=== PATIENT | female | born 1995 | race Two or more races ===

== ENCOUNTER 2025-06-28 09:17 | Outpatient (AMB) | payer OTHER, MEDICAID, SELFPAY ==
--- NOTE | 2025-06-28 09:19 | OBCLNT_ITS ---
Vital Signs 06/28/25 09:23 Height 1.57 m Height Method Stated Weight 63.276 kg Weight Measurement Method Standing Scale BMI 25.4 BP 128/91 H Blood Pressure Source Automatic Cuff Blood Pressure Location Right Upper Arm Position Sitting Respiration 18 Pulse 85 Pulse Source Monitor Temp 98.2 F Temp Source Temporal Artery Scan Pulse Oximetry (%) 98 Oxygen Delivery Method Room Air Allergies/Home Meds Allergies & Medications Allergies bee venom protein (honey bee) Allergy (Verified 06/28/25 11:50) Medication Reconciliation No Known Home Medications 06/28/25 [History Confirmed 06/28/25] Intake Visit Data Collection New Patient or Established: New Patient not seen in past 3 years at [facility] (considered New) Reason for Visit:: OBI Seen by Clinical Staff ONLY (RN/MA): No Network Security Architect Required: No Do You Feel Safe at Home: Yes Authorities Contacted: N/A PCP or OBGYN visit in last 3 months: No Hx Now: Yes Are you currently on any form of Control: No Last menstrual period: 05/11/25 Pain Present Currently: Yes Pain Location: Back Pain Scale Used: Patino-Stokes/Numerical Pain scale:: 2 Smoking Status Smoking Status: Never smoker Immunizations Flu Vaccine in the Last 12 Months: Yes Date of most recent flu vaccination: 04/10/25 Flu Vaccine Exclusion Criteria: Refused by Patient Questionnaires Covid-19 Vaccine Questionnaire Has patient been vacinated for Covid-19 Have you been vacinated for Covid-19: Yes PHQ-9 PHQ-2 Over the last 2 weeks, how often have you been bothered by any of the following problems? 1. Little interest or pleasure in doing things: not at all 2. Feeling down, depressed, or hopeless: not at all Total score: 0 PHQ-9 3. Trouble falling or staying asleep, or sleeping too much: Not at all 4. Feeling tired or having little energy: Several days 5. Poor appetite or overeating: Not at all 6. Feeling bad about yourself - or that you are a failure or have let yourself or your family down: Not at all 7. Trouble concentrating on things, such as reading the newspaper or watching television: Not at all 8. Moving or speaking so slowly that other people could have noticed? - Or the opposite - being so fidgety or restless that you have been moving around a lot more than usual: not at all 9. Thoughts that you would be better off or of hurting yourself in some way: Not at all Total score: 1.0 If you checked off any problems, how difficult have these problems made it for you to do your work, take care of things at home, or get along with other people?: not difficult at all Source: Developed by Drs. González Gordon, Claudia Sims, Armando Borjas and colleagues, with an educational mike from [employer]. Social History Living Situation History Housing: Apartment Tobacco History Smoking Status: Never smoker Second Hand Smoke Exposure: No Alcohol History Alcohol Intake: Never Domestic Abuse History Do You Feel Safe at Home: Yes History of Present Illness HPI Narrative Initial visit, vaginal bleeding since June 13 with intermittent episodes, sharp unilateral pelvic pain that radiates to back Allie Daniel is a 30-year-old female presenting for initial visit with concerns regarding abnormal bleeding and declining beta-hCG levels. The patient reports bleeding that began on June 13, stopped for approximately 3 days, then resumed and is ongoing. She brought her beta-hCG lab results showing an initial rise followed by a decline: 06/16 was 106, 06/19 was 166, 06/26 was 245, and 06/24 was 385, indicating the levels peaked at 385 then dropped to 245. The patient reports experiencing sharp pain on her right side that radiates to her back, described as intermittent and coming and going in nature. This pain began around Tuesday or Tuesday of the current week. 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 The patient has recently lost a significant amount of weight through a ketogenic diet, having stopped eating bread and other carbohydrates. 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 No obvious adnexal masses identified on initial evaluation. BIG DATA DEVELOPER: Past Medical History Past Medical History: Yes Hx Neurological Disorders, Yes Hx Cardiac Disorders (gest. htn), No Hx Cancer, No Hx Blood Disorders, No Hx Anemia, No Hx Gastrointestinal Disorders, No Hx Renal Disease, No Hx Diabetes Mellitus Type 1 and No Hx Diabetes Mellitus Type 2 OB Initial Visit Menstrual History Flow: light Menstrual regularity: regular Monthly: Yes Age at menarche: 12 On control pills at conception: No Date of positive home test: 06/06/25 OB History : 5 Para: 2 Hx # Pregnancies: 0 Hx Total # of Abortions (Spontaneous & Elective): 2 # of Living Children: 2 Delivery History 2nd : Child's name: ANAM DANIEL date: 01/14/22 sex: male Gestational age at delivery (weeks): 38 Delivery type: weight (lbs): 2721.554 g weight (oz): 3175.147 g Delivery complications: MOM HEAVY BLEEDING History of depression before or after : No 1st : Child's name: JUSTINE DANIEL date: 07/04/20 sex: female Gestational age at delivery (weeks): 39 Delivery type: weight (lbs): 3175.147 g Delivery complications: HEART RATE DROPPING, MOM HAD HIGH BLOOD PRESSURE, History of depression before or after : No Exam General General Appearance: alert, in no apparent distress and healthy appearing Head Head exam: atraumatic Neck Neck exam: Present normal inspection and trachea midline Chest Chest inspection: Present normal inspection and symmetric chest wall rise Abdominal Abdominal exam: Present tenderness (minimal in RRQ); Absent distention External exam: Present normal external exam; Absent tenderness Neuro Neurological exam: Present oriented X3 Psych Psychiatric exam: Present normal affect and normal mood Office Procedures [facility] LOC & Office Proc's Nursing/Assessment Patient Status: Initial/New Patient OB Clinic Nursing Assessment: Medication Reconciliation, Update PMH in EMR and Vital Signs OB Clinic Coordination of Care: Complex Care and Chronic Disease 1-5, Education Complex Pt/Fam, Consent,records obtained, informed consent, Lab and Imaging orders, Results/Orders obtained and Staff clarify orders Special Needs: Heart tones New Patient Charge New Patient Point Assignment: [id number] New Patient Point Charge: CORRESPONDENCE SECTION SUPERVISOR Level 4 ([id number]) Assessment & Plan Diagnosis / Problem List (1) Threatened : Status: Acute (2) of unknown anatomic location: Status: Acute Plan Chemical with possible miscarriage Assessment: Patient presents with declining beta-hCG levels indicating probable loss. Serial beta-hCG values show initial rise from 106 on 06/16 to peak of 385 on 06/24, followed by decline to 245 on 06/26. Normal should demonstrate doubling every 72 hours, but patient's levels failed to appropriately increase and subsequently declined. Transvaginal ultrasound reveals empty uterine cavity with no intrauterine visualized. Patient reports vaginal bleeding starting June 13, stopping for 3 days, then resuming and ongoing. Clinical presentation consistent with chemical where fertilization occurs but fails to develop appropriately. Plan: - Obtain repeat beta-hCG level to confirm declining trend - Perform transvaginal ultrasound to evaluate for retained products of conception - Patient advised not to take medications to stop bleeding to allow complete evacuation - If ultrasound demonstrates retained tissue, may require dilation and curettage or medical management - Return to clinic Tuesday or Tuesday for results review and further management planning - If pain worsens, present to emergency room and request physician be contacted Rule out ectopic Assessment: Patient reports intermittent sharp unilateral pelvic pain that radiates to back, raising concern for possible ectopic . Pain described as constant but intermittent in nature. Transvaginal ultrasound shows empty uterus with no adnexal masses visualized on ovaries, but given clinical presentation with pain and declining beta-hCG levels, ectopic must be definitively excluded. Plan: - Stat order for comprehensive evaluation to rule out ectopic - Transvaginal ultrasound to evaluate adnexa and pelvis - Serial beta-hCG monitoring - If pain becomes worse, present to emergency room immediately and request phys ician be contacted
[2025-06-28 09:23] VITALS: BP 128/91; PULSE 85; RESP 18; TEMP 36.8; O2SAT 98; BMI 25.4
== END 2025-06-28 10:03 | disposition home or self-care (01) ==
LOC: HODSOBC 09:17
PROVIDERS: Supervising Provider Obstetrics & Gynecology; Visit Provider Obstetrics & Gynecology
DX: O09.899 Supervision of other high risk pregnancies, unspecified trimester (principal); O20.0 Threatened abortion; O36.80X0 Pregnancy with inconclusive fetal viability, not applicable or unspecified; Z3A.00 Weeks of gestation of pregnancy not specified; Z91.030 Bee allergy status
CPT/HCPCS: 99204; G0463

== ENCOUNTER 2025-06-28 11:48 | Observation (INO) | payer OTHER, SELFPAY ==
[2025-06-28] VITALS (18 sets, daily range): BP systolic 118–144; BP diastolic 74–107; PULSE 86–97; RESP 14–22; TEMP 36.4–37.6; O2SAT 98–100; BMI 25.4; BMI 25.8
--- NOTE | 2025-06-28 12:50 | EDNOTE_ITS ---
ED General RME/HPI General Chief complaint: General Adult/Misc Complain Stated complaint: R/O ECTOPIC , SENT BY [facility] Time Seen by Provider: 06/28/25 12:21 Arrival date/time: 06/28/25 11:48 30-year-old female patient 5 para 2 2, about 6 weeks , was sent was from ultrasound department for ruptured ectopic . According to the patient's been having pain to the right lower pelvic area since Tuesday, it was strong during the first day currently 2 out of 10. Patient is ambulatory denies any dizziness denies any vomiting denies any other complaints. No fever noted patient saw Dr. Machado this morning who ordered ultrasound. Related Data Home Medications ?Medication ?Instructions ?Recorded ?Confirmed No Known Home Medications 06/28/2506/10 Allergies Allergy/AdvReac Type Severity Reaction Status Date / Time bee venom protein (honey bee) Allergy Verified 06/28/25 11:50 Review of Systems Review of Systems Narrative Review of Systems: Review of system reviewed and within normal limits except mentioned in HPI ED Exam Narrative Physical exam: VITAL SIGNS: Reviewed. GENERAL APPEARANCE: Alert and interactive, follows commands, no acute distress, HEAD AND FACE: Non-traumatic. ENT: PERRL, pink conjunctivitis, eyelid no trauma, Mucous membrane moist. NECK: Supple, nontender, no nuchal rigidity. CHEST: No tenderness, no crepitus, no paradoxical movement, no retractions. LUNGS: Clear, well ventilated, symmetric, no rales, no wheezing, no ronchi, no stridor, good breath sounds bilaterally. HEART: Regular rate, regular rhythm, no murmur, no gallops. ABDOMEN: Soft, positive bowel sounds, nondistended, no guarding, right lower pelvic tenderness, no rebound, no masses, RECTAL: Deferred. GENITAL: Deferred. NEUROLOGICAL: Gross motor function intact sensory function intact, Appropriate for age. MUSCULOSKELETAL: low back nontender, full range of motion. EXTREMITIES: Nontender, full range of motion. SKIN: Color pink, dry, no rash, no lacerations, no abrasions, no contusions. LYMPHATICS: Deferred. Course Quality Measures none Orders Category Date Time Status Place in Surgical Day Care Routine Admission 06/28/25 13:57 Active Activity as Tolerated Routine Care 06/28/25 13:57 Ordered COVID-19 Screening Questionnaire NOW Care 06/28/25 14:02 Active Decision to Admit X1 Care 06/28/25 14:02 Active NPO NOW Care 06/28/25 13:10 Active Obtain Written Consent For: NOW Care 06/28/25 13:57 Active Consult to Gynecology Stat Cons 06/28/25 13:10 Ordered Diet NPO (NOW) Diet 06/28/25 13:10 Active Beta HCG,Quantitative Stat Lab 06/28/25 12:51 Completed CBC Stat Lab 06/28/25 12:51 Completed Comprehensive Metabolic Panel Stat Lab 06/28/25 12:51 Completed Partial Thromboplastin Time Stat Lab 06/28/25 12:51 Completed Prothrombin Time with INR Stat Lab 06/28/25 12:51 Completed Type and Screen Stat Lab 06/28/25 12:51 Completed Urinalysis Stat Lab 06/28/25 12:44 Ordered ceFAZolin/D5W 1 GM IVPB [Ancef Ivpb] Med 06/28/25 13:57 Active 1 gm in 50 ml IV X1 Vital Signs Vital signs: Vital Signs Temperature 98.9 F 06/28/25 12:42 Pulse Rate 94 06/28/25 12:42 Respiratory Rate 18 06/28/25 12:42 Blood Pressure 144/107 H 06/28/25 12:42 Pulse Oximetry (%) 100 06/28/25 12:42 Oxygen Delivery Method Room Air 06/28/25 12:42 Discharge Plan Plan Patient Disposition: Admit Acute Care w/in Hospital Discharge Disposition comment: Stable Prescriptions/Referrals Prescriptions/Med Rec: No Action No Known Home Medications Referrals: Leroy Escobar PA-C [Primary Care Provider] - In 1 week Problem List Clinical Impression: Ruptured ectopic Patient/Caregiver Discharge Instructions Print Language: Mauritanian Stand Alone Forms: [employer] Award Info., Patient Portal Info Letter MDM Narrative MDM hospital course (for use when minimal MDM required): 30-year-old female patient 5 para 2 2, about 6 weeks , was sent was from ultrasound department for ruptured ectopic . According to the patient's been having pain to the right lower pelvic area since Tuesday, it was strong during the first day currently 2 out of 10. Patient is ambulatory denies any dizziness denies any vomiting denies any other complaints. No fever noted patient saw Dr. Machado this morning who ordered ultrasound. I spoke with Dr. Machado, CUSTOMER COUNTER REPRESENTATIVE open this patient, and told me to contact Dr Gogo mcneill. Dr Brown examined the patient in the emergency room and will schedule for emergency laparoscopic surgery for ruptured ectopic . Patient hemoglobin was noted to be normal, patient vital signs are also within normal limits latest blood pressure 132/84 heart rate of 94 Patient is admitted under Dr Brown Medication Administration(s) Medication Administration History Cefazolin Sodium/Dextrose (Ancef Ivpb) 1 gm in 50 mls @ 50 mls/hr IV X1 ONE Stop: 06/28/25 14:56
[2025-06-28 13:03] LABS: Basophils # (Auto) 0.0 Thou/mm3 (0.0-0.2); Basophils % (Auto) 1 % (0-2.5); Eosinophils # (Auto) 0.0 Thou/mm3 (0.0-0.5); Eosinophils % (Auto) 1 % (0-10); Hematocrit 37.5 % (36.0-46.0); Hemoglobin 12.7 g/dL (12.0-16.0); Immature Granulocytes Auto 0.02 Thou/mm3 (0.00-0.00); Lymphocytes # (Auto) 2.2 Thou/mm3 (1.0-4.8); Lymphocytes % (Auto) 31 % (10-50); Mean Corpuscular HGB Conc 33.9 g/dl (31.0-37.0); Mean Corpuscular Hemoglobin 30.8 pg (25.0-35.0); Mean Corpuscular Volume 91 fL (80-100); Monocytes # (Auto) 0.4 Thou/mm3 (0.0-0.8); Monocytes % (Auto) 6 % (0-12); Neutrophils # (Auto) 4.4 Thou/mm3 (1.8-7.7); Neutrophils % (Auto) 62 % (37-80); Nucleated Red Blood Cell # 0.00 Thou/mm3 (0.00-0.00); Nucleated Red Blood Cell % 0 /100 WBC (0); Platelet Count 317 Thou/mm3 (140-440); RDW Standard Deviation 39.9 fL (36.4-46.3); Red Blood Count 4.13 Miln/mm3 (4.00-5.20); White Blood Count 7.1 Thou/mm3 (3.6-11.0)
[2025-06-28 13:17] LABS: INR 1.0 (0.9-1.3); Partial Thromboplastin Time 28.0 Seconds (22.0-36.0); Prothrombin Time 10.7 Seconds (9.0-12.2)
[2025-06-28 13:29] LABS: Alanine Aminotransferase < 7 U/L (10-49); Albumin, Serum 5.1 gm/dL (3.5-5.0); Albumin/Globulin Ratio 1.9 (1.2-2.2); Alkaline Phosphatase 67 U/L (46-116); Anion Gap 10 (7-16); Aspartate Amino Transferase 19 U/L (0-34); BUN/Creatinine Ratio 17 Ratio (12-20); Beta HCG,Quantitative 404 mIU/mL (<5.0); Bilirubin,Total 0.8 mg/dL (0.3-1.2); Blood Urea Nitrogen 10 mg/dL (9-23); Calcium 9.3 mg/dL (8.3-10.6); Calcium (Corrected) 9.3 mg/dL (8.5-10.1); Carbon Dioxide 26.8 mMol/L (20.0-31.0); Chloride 106 mMol/L (98-107); Creatinine (Component) 0.6 mg/dL (0.6-1.3); Estimated Creatinine Clearance 119.6 mL/min (>60); Globulin 2.7 gm/dL (2.3-3.5); Glucose 107 mg/dL (74-106); Osmolality,Calculated 283 (275-295); Potassium 3.8 mMol/L (3.4-5.1); Sodium 143 mMol/L (136-145); Total Protein 7.8 gm/dL (5.7-8.2); eGFR > 60 See Note
--- NOTE | 2025-06-28 13:45 | ESCONSULT_ITS ---
CHARGE PREPARATION TECHNICIAN HPI Data of Consult Patient: new to practice Consult date: 06/28/25 Requesting Physician: Dr. Dawkins emergency room Primary Care Provider: Leroy Escobar PA-C Consult Narrative Reason for consult: ectopic History of present illness: Patient is a 30-year-old -0-2-2 approximately 6 weeks with vaginal bleeding beginning June 13 and severe pelvic pain beginning June 24, 2025. She saw Dr[address] Machado in the clinic today and he ordered an ultrasound. The ultrasound is positive for free fluid in her pelvis with a suspected ruptured right ectopic . The ectopic is seen in the right fallopian tube measuring approximately 6 weeks with no cardiac activity. Patient is consented for a laparoscopic unilateral salpingectomy possible laparotomy. Of note her hemoglobin is stable at 12.7. Her quantitative hCG is 404. Her blood type is B+. cc:: cc: Review of Systems Review of Systems Systems Reviewed: All systems reviewed, normal except as documented Narrative Review of Systems: Patient denies fevers chills nausea vomiting. She reports sharp abdominal pain worse 4 days ago then today. She has been having irregular bleeding since June 13. Past Medical History Past Medical History Comments PMH COMMENT: Patient denies any chronic medical problems. She denies diabetes or hypertension. She reports mild asthma and has an albuterol inhaler at home. She has a surgical history significant for x 2 The first was in 2019 for preeclampsia The second was in 2021 and was an elective repeat. She has had 2 other losses without surgery. Meds Home Medications and Allergies Home Medications ?Medication ?Instructions ?Recorded ?Confirmed ?Type No Known Home Medications 06/28/2506/10 History Allergies Allergy/AdvReac Type Severity Reaction Status Date / Time bee venom protein (honey bee) Allergy Verified 06/28/25 11:50 Exam - CHARGE PREPARATION TECHNICIAN Vital Signs Temp Pulse Resp BP Pulse Ox O2 Del Method 98.9 F 94 18 144/107 H 100 Room Air 06/28/25 12:42 06/28/25 12:42 06/28/25 12:42 06/28/25 12:42 06/28/25 12:42 06/28/25 12:42 Narrative Exam Patient is alert and oriented x 3 in mild distress. The father of the baby is at bedside. She is cooperative. Routine Respiratory Exam Respiratory: Present lungs clear Routine Cardiovascular Exam Cardiovascular: Present RRR Routine Abdominal Exam Abdominal: Present soft Detailed Abdominal Exam Comments: Abdomen soft slightly tender no rebound no guarding Pfannenstiel scar x 2 present on patient's abdomen. Routine Extremities Exam Comments: No significant edema or erythema of bilateral lower extremities CHARGE PREPARATION TECHNICIAN - Results Labs 06/28/25 12:51 06/28/25 12:51 Labs: Short CBC 06/28/25 Range/Units 12:51 WBC 7.1 (3.6-11.0) Thou/mm3 Hgb 12.7 (12.0-16.0) g/dL Hct 37.5 (36.0-46.0) % Plt Count 317 (140-440) Thou/mm3 BMP 06/28/25 12:51 Sodium 143 Potassium 3.8 Chloride 106 Carbon Dioxide 26.8 BUN 10 Creatinine 0.6 Glucose 107 H Calcium 9.3 Liver Function 06/28/25 Range/Units 12:51 Total Bilirubin 0.8 (0.3-1.2) mg/dL AST 19 (0-34) U/L ALT < 7 L (10-49) U/L Alkaline Phosphatase 67 (46-116) U/L Albumin 5.1 H (3.5-5.0) gm/dL Imaging and Cardiology US - abdomen: Status: image reviewed by me (Ultrasound was reviewed with a small to moderate amount of free fluid. Ectopic seen in right adnexa. Uterus 8 cm with a stripe of 0.8 cm and no intrauterine seen.) Assessment and Plan Assessment and plan (1) Ectopic without intrauterine : Status: Acute Assessment and plan: For laparoscopic unilateral salpingectomy possible laparotomy. The patient was consented for the procedure in front of her emergency room RN and her significant other. The risks of the surgery were discussed with the patient including the risk of bleeding, infection, blood transfusion, damage to bowel, bladder, blood vessels, or other organs. Laparotomy and prolonged hospital stay should any the above occur. All questions were answered and all consents were signed. Will proceed with laparoscopy unilateral salpingectomy in approximately 1 to 2 hours depending on OR availability. Additional Assessment & Plan Additional Plan: Keep patient NPO. She already has [address]. Current hemoglobin 12.7. Vital signs stable. (1) Ectopic without intrauterine Qualifiers: Location of ectopic : tubal Laterality: right Qualified Code(s): O 00.101 - Right tubal without intrauterine
[2025-06-28] MEDS: ceFAZolin/D5W 1 GM IVPB 1 GM/50 ML BAG IV (14:15)
[2025-06-28 17:17] LABS: Collection Type, Urine Clean Catch
[2025-06-28 17:22] LABS: Bilirubin,Urine Negative (Negative); Blood,Urine 3+ (Negative); Color,Urine Colorless (Lt Yel-Yel); Glucose, Urine Negative (Negative); Ketones,Urine Negative (Negative); Leukocyte Esterase,Urine Negative (Negative); Nitrite,Urine Negative (Negative); PH,Urine 6.0 (5.0-7.0); Protein,Urine Negative (Neg - Trace); RBC,Urine 3 /hpf (0-3); Specific Gravity,Urine 1.007 (1.001-1.035); Squamous Epithelial Cell,Urine 7 /hpf (0-5); Urobilinogen,Urine Negative mg/dL (0.0-1.0); WBC,Urine 2 /hpf (0-5)
[2025-06-28 17:45] LABS: Clarity,Urine Hazy (Clear/Hazy)
[2025-06-28] MEDS: HYDROmorphone INJ 2 MG/ML VIAL 0.4 MG IVP (17:54)
[2025-06-28] MEDS: ONDANSETRON INJ 2 MG/ML INJ 2 ML 4 MG IVP (17:58)
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
[2025-06-28] MEDS: MORPHINE SULF INJ 4 MG/ML VIAL 3 MG IV (18:09)
[2025-06-28] MEDS: KETOROLAC INJ 30 MG/ML VIAL IVP (18:13)
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
--- NOTE | 2025-06-28 19:44 | ESOP_ITS ---
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 Her quantitative hCG was 404. Patient's ultrasound revealed free fluid in the pelvis and a right ectopic . She was consented for laparoscopy unilateral salpingectomy possible laparotomy. Patient's past obstetrical history significant for C- section x 2. Pre-Op diagnosis: 1. Abdominal pain 2. Positive test 3. Suspected ectopic Post-Op diagnosis: Right ectopic with a small amount of hemoperitoneum Anesthesia type: General Procedure description: After obtaining informed consent, the patient was brought back to the operating room and general anesthesia administered. She was then prepped and draped in the dorsolithotomy position using Maikel stirrups in a normal sterile fashion. Her bladder was emptied with an in and out catheter. The patient was given 2 g of Ancef by anesthesia. A speculum was inserted and the cervix identified and a uterine manipulator inserted. The surgeons gloves were changed and attention was turned to the patient's abdomen where a 5 mm incision was made in her periumbilical fold. A Veress needle was introduced and correct intra-abdominal placement confirmed via the water drop test. The abdomen was allowed to insufflate with 3 L of CO2 gas. A 5 mm trocar and sleeve were introduced through the umbilical incision along with a 5 mm camera and correct intra- abdominal placement visually confirmed. A 5 mm incision was made in her right lower quadrant and a 5 mm trocar and sleeve introduced under direct visualization. A 10 mm incision was made in her left lower quadrant and a 10 mm trocar and sleeve introduced under direct visualization. The pelvis was copiously irrigated with the Pop a irrigation device and pictures taken of the above findings. The right fallopian tube was found to be distended with an ectopic and a small amount of hemoperitoneum seen especially in the cul-de-sac, approximately 50 cc.. The fimbriated end of the right fallopian tube was grasped with an atraumatic grasper and the entire fallopian tube was removed from its fimbriated end all the way to the cornual end. The tube was placed in Endo Catch bag through the large instrument port and removed from the patient's abdomen. The pelvic sidewall was carefully surveyed to ensure no damage had occurred to the ureter or vessels on the right pelvic sidewall and the ureter was found to be coursing normally free of the operating field. The pelvis was then copiously irrigated with more irrigation fluid and the salpingectomy site noted to be hemostatic. A blunt probe was placed through one of the instrument ports and pictures taken of the above findings. The left fallopian tube and ovary were found to be completely normal. The right ovary was normal. The patient did have adhesions involving her anterior abdominal lower uterine segment to her anterior abdominal wall. The posterior cul-de-sac was free. Her appendix appeared normal. After ensuring there the salpingectomy site was still hemostatic, the procedure was terminated. All instrumentation was removed from the patient's abdomen and the CO2 gas allowed to resolve. All incisions were closed using subcuticular sutures of 4-0 Monocryl. All instrumentation was removed from the patient's vagina and the tenaculum site noted to be hemostatic. The patient tolerated the procedure well, sponge, lap, needle and instrument counts were correct x 2. The patient went to the recovery awake and in stable condition .Pathology was right fallopian tube containing suspected ectopic . Fluids: crystalloid Fluid amount (mL): 1,000 Urine output (mL): 50 Specimen: right tube Implants: None Estimated blood loss (ml): 10 Findings: Adhesions of anterior uterus to anterior abdominal wall. Omental adhesions around umbilicus. Ectopic in the median portion of her right fallopian tube extruding blood. Approximately 50 cc of blood and clots in the posterior cul-de-sac. Normal ovaries bilaterally. Normal left fallopian tube. Complications: none Surgical staff Operation Date: 06/28/25 15:30 Case Staff Anesthesiologist: Crescencio Stewart RN First Assistant: Lazara Salgado Diagnosis Discharge Diagnosis (1) Ruptured ectopic : Status: Acute Problem details: Patient's status post laparoscopic right salpingectomy. She will stay overnight as the case was completed at approximately 5:30 PM. Problem List Completed Was Problem List Reviewed/Reconciled?: Yes
[2025-06-28 19:48] LABS: Fibrinogen 288 mg/dL (175-375)
[2025-06-28] MEDS: HYDROcodone/APAP 5/325 TABLET 1 TAB PO (21:24)
[2025-06-29] VITALS: BP 121/74; PULSE 84; RESP 18; TEMP 36.8; O2SAT 98
[2025-06-29] MEDS: KETOROLAC INJ 30 MG/ML VIAL IVP ×2 (00:17→05:54)
[2025-06-29 00:47] LABS: Fibrinogen 309 mg/dL (175-375)
[2025-06-29 04:00] VITALS: BP 116/79; PULSE 71; RESP 18; TEMP 36.3; O2SAT 100
[2025-06-29 06:11] LABS: Basophils # (Auto) 0.0 Thou/mm3 (0.0-0.2); Basophils % (Auto) 0 % (0-2.5); Eosinophils # (Auto) 0.0 Thou/mm3 (0.0-0.5); Eosinophils % (Auto) 0 % (0-10); Hematocrit 35.7 % (36.0-46.0); Hemoglobin 12.4 g/dL (12.0-16.0); Immature Granulocytes Auto 0.05 Thou/mm3 (0.00-0.00); Lymphocytes # (Auto) 1.2 Thou/mm3 (1.0-4.8); Lymphocytes % (Auto) 10 % (10-50); Mean Corpuscular HGB Conc 34.7 g/dl (31.0-37.0); Mean Corpuscular Hemoglobin 31.1 pg (25.0-35.0); Mean Corpuscular Volume 90 fL (80-100); Monocytes # (Auto) 0.5 Thou/mm3 (0.0-0.8); Monocytes % (Auto) 4 % (0-12); Neutrophils # (Auto) 9.9 Thou/mm3 (1.8-7.7); Neutrophils % (Auto) 86 % (37-80); Nucleated Red Blood Cell # 0.00 Thou/mm3 (0.00-0.00); Nucleated Red Blood Cell % 0 /100 WBC (0); Platelet Count 303 Thou/mm3 (140-440); RDW Standard Deviation 38.3 fL (36.4-46.3); Red Blood Count 3.99 Miln/mm3 (4.00-5.20); White Blood Count 11.5 Thou/mm3 (3.6-11.0)
[2025-06-29 06:53] LABS: Alanine Aminotransferase < 7 U/L (10-49); Albumin, Serum 4.4 gm/dL (3.5-5.0); Albumin/Globulin Ratio 1.7 (1.2-2.2); Alkaline Phosphatase 64 U/L (46-116); Anion Gap 11 (7-16); Aspartate Amino Transferase 18 U/L (0-34); BUN/Creatinine Ratio 12 Ratio (12-20); Bilirubin,Total 0.9 mg/dL (0.3-1.2); Blood Urea Nitrogen 7 mg/dL (9-23); Calcium 9.1 mg/dL (8.3-10.6); Calcium (Corrected) 9.1 mg/dL (8.5-10.1); Carbon Dioxide 23.8 mMol/L (20.0-31.0); Chloride 106 mMol/L (98-107); Creatinine (Component) 0.6 mg/dL (0.6-1.3); Estimated Creatinine Clearance 120.5 mL/min (>60); Globulin 2.6 gm/dL (2.3-3.5); Glucose 105 mg/dL (74-106); Osmolality,Calculated 279 (275-295); Potassium 4.3 mMol/L (3.4-5.1); Sodium 141 mMol/L (136-145); Total Protein 7.0 gm/dL (5.7-8.2); eGFR > 60 See Note
[2025-06-29 08:00] VITALS: BP 126/85; PULSE 81; RESP 16; TEMP 36.1; O2SAT 100
[2025-06-29] MEDS: HYDROcodone/APAP 5/325 TABLET 1 TAB PO (08:36)
--- NOTE | 2025-06-29 10:11 | PD.GYNPROG ---
Documentation for date of: 06/29/25 PROGRAM SERVICES ASSISTANT Subjective Subjective Interval history: Patient doing well this morning. Pain is adequately controlled. No chest pain or shortness of breath. Labs are appropriate. Exam Vital Signs Temp Pulse Resp BP Pulse Ox O2 Del Method O2 Flow Rate 97.0 F 81 16 126/85 H 100 Room Air 8 06/29/25 08:00 06/29/25 08:00 06/29/25 08:00 06/29/25 08:00 06/29/25 08:00 06/29/25 08:00 06/28/25 19:40 Constitutional Constitutional: no acute distress Routine HEENT Exam Head: Present normocephalic and atraumatic Eye: Present EOMI and PERRL ENT: Present mucous membranes moist Routine Neck Exam Neck: Present supple and trachea midline Routine Respiratory Exam Respiratory: Present chest non-tender, lungs clear, normal breath sounds and no resp distress Routine Cardiovascular Exam Cardiovascular: Present RRR Routine Abdominal Exam Abdominal: Present soft and normoactive bowel sounds Routine Extremities Exam Extremities: Present full ROM Routine Skin Exam Skin: Present intact and dry Routine Neurological Exam Neurological: Present alert, oriented X3 and CN II-XII intact Routine Psychiatric Exam Psychiatric: Present normal affect and normal thought process Urinary Catheter Management Cath placed during this visit: no PROGRAM SERVICES ASSISTANT - PN: Obj Data Labs 06/29/25 05:22 06/29/25 05:22 Labs: Laboratory Results - last 24 hr 06/28/25 06/28/25 06/28/25 12:51 16:39 18:59 WBC 7.1 RBC 4.13 Hgb 12.7 Hct 37.5 MCV 91 MCH 30.8 MCHC 33.9 RDW Std Deviation 39.9 Plt Count 317 Neut % (Auto) 62 Lymph % (Auto) 31 Shannon % (Auto) 6 Eos % (Auto) 1 Baso % (Auto) 1 Neut # (Auto) 4.4 Lymph # (Auto) 2.2 Shannon # (Auto) 0.4 Eos # (Auto) 0.0 Baso # (Auto) 0.0 Immature Gran # (Auto) 0.02 H Absolute Nucleated RBC 0.00 Immature Gran % 0 Nucleated RBC % 0 PT 10.7 INR 1.0 APTT 28.0 Fibrinogen 288 Sodium 143 Potassium 3.8 Chloride 106 Carbon Dioxide 26.8 Anion Gap 10 BUN 10 Creatinine 0.6 Estim Creat Clear Calc 119.6 eGFR > 60 BUN/Creatinine Ratio 17 Glucose 107 H Calculated Osmolality 283 Calcium 9.3 Corrected Calcium 9.3 Total Bilirubin 0.8 AST 19 ALT < 7 L Alkaline Phosphatase 67 Total Protein 7.8 Albumin 5.1 H Globulin 2.7 Albumin/Globulin Ratio 1.9 Beta HCG, Quant 404 Ur Collection Type Clean Catch Urine Color Colorless A Urine Clarity Hazy Urine pH 6.0 Ur Specific Hardy 1.007 Urine Protein Negative Urine Glucose (UA) Negative Urine Ketones Negative Urine Blood 3+ A Urine Nitrite Negative Urine Bilirubin Negative Urine Urobilinogen (Auto) Negative Ur Leukocyte Esterase Negative Urine RBC 3 Urine WBC 2 Ur Squamous Epith Cells 7 H Urine Bacteria None Blood Type B Positive Antibody Screen NEGATIVE Blood Bank Wristband ID Yes 06/29/25 06/29/25 00:17 05:22 WBC 11.5 H D RBC 3.99 L Hgb 12.4 Hct 35.7 L MCV 90 MCH 31.1 MCHC 34.7 RDW Std Deviation 38.3 Plt Count 303 Neut % (Auto) 86 H Lymph % (Auto) 10 Shannon % (Auto) 4 Eos % (Auto) 0 Baso % (Auto) 0 Neut # (Auto) 9.9 H Lymph # (Auto) 1.2 Shannon # (Auto) 0.5 Eos # (Auto) 0.0 Baso # (Auto) 0.0 Immature Gran # (Auto) 0.05 H Absolute Nucleated RBC 0.00 Immature Gran % 0 Nucleated RBC % 0 PT INR APTT Fibrinogen 309 Sodium 141 Potassium 4.3 D Chloride 106 Carbon Dioxide 23.8 Anion Gap 11 BUN 7 L Creatinine 0.6 Estim Creat Clear Calc 120.5 eGFR > 60 BUN/Creatinine Ratio 12 Glucose 105 Calculated Osmolality 279 Calcium 9.1 Corrected Calcium 9.1 Total Bilirubin 0.9 AST 18 ALT < 7 L Alkaline Phosphatase 64 Total Protein 7.0 Albumin 4.4 D Globulin 2.6 Albumin/Globulin Ratio 1.7 Beta HCG, Quant Ur Collection Type Urine Color Urine Clarity Urine pH Ur Specific Hardy Urine Protein Urine Glucose (UA) Urine Ketones Urine Blood Urine Nitrite Urine Bilirubin Urine Urobilinogen (Auto) Ur Leukocyte Esterase Urine RBC Urine WBC Ur Squamous Epith Cells Urine Bacteria Blood Type Antibody Screen Blood Bank Wristband ID PROGRAM SERVICES ASSISTANT - A/P Assessment and plan (1) Ruptured ectopic : Status: Acute Assessment and plan: Postoperative day #1 status post laparotomy and right salpingectomy Ready for discharge today. Postoperative instructions were reviewed. Patient will follow-up in the office in 1-2 weeks Postoperative Procedures: Procedures Operation Date: 06/28/25 15:30 Actual Procedure Side Surgeon p Diagnostic Laparoscopy, right salpingectomy Right Juju Brown ([facility]), Time Spent With Patient Time: Total time spent is greater than 50% in coordination of care (as documented) at patient's floor/unit and/or counseling patient: Time with patient: less than 15 minutes
--- NOTE | 2025-06-29 11:10 | PC.SS ---
30YO Female, Reason for visit: ECTOPIC ? SS met with patient at bedside to complete initial assessment. Role and purpose of today?s contact explained to patient. Patient confirmed her demographic information. She stated her primary surrogate medical decision maker is her Spouse Basim Doss [phone]. Patient reports she is independent with ADL completion and independent with ambulation also. PHARMACY: [facility] Simona Barraza. PCP: [facility] No specific provider, last seen by Dr. Machado 06/27. ?Discharge plan discussed with patient, she is requesting to discharge home when medically clear. Spouse to transport her home. NEXT OF KIN: Spouse Basim Doss [phone] DISCHARGE PLAN: Home
== END 2025-06-29 11:43 | disposition home or self-care (01) ==
LOC: SERX 14:05 → S2EX 14:20 → S3SX 06-29 05:37
PROVIDERS: Nurse Practitioner Family; Admitting Provider Obstetrics & Gynecology; Emergency Provider Family Medicine; PCP Family Medicine; Referring Provider Obstetrics & Gynecology; Visit Provider Obstetrics & Gynecology
PROC: (CPT 49320; principal; 2025-06-28 15:15)
DX: O00.101 Right tubal pregnancy without intrauterine pregnancy (principal); K66.1 Hemoperitoneum
CPT/HCPCS: 59151; 36415; 80053; 81001; 84702; 85025; 85384; 85610; 85730; 86850; 86900; 86901; 96374; 96375; 99282; A4217; A4649; G0378; J0131; J0689; J1171; J1885; J2250; J2270; J2405; J2704; J3010; J3490; A9270

== ENCOUNTER → 2025-06-28 | Outpatient (CLI) | payer OTHER, SELFPAY ==
--- NOTE | 2025-06-28 10:25 | XR_ITS ---
Examination: OB Transvaginal ultrasound of the pelvis, complete Technique: Transvaginal sonographic images pelvis performed using serrato scale imaging Exam date and time: June 28, 2025, 1103 hours INDICATIONS: Positive test 1 month ago vaginal bleeding beginning June 13, 2025 onset severe right pelvic pain beginning 4 days ago. FINDINGS: Uterus 8.1 cm no intrauterine gestation Endometrial stripe 0.8 cm Right ovary 2.8 cm arterial flow, findings consistent with ruptured right ectopic in the right fallopian tube, CRL 0.2 cm corresponds to 5 weeks 5 days gestational age, no cardiac motion Left ovary 3.0 cm arterial flow IMPRESSION: Findings most consistent with ruptured right ectopic in the right fallopian tube
--- NOTE | 2025-06-28 10:25 | XR_ITS ---
Examination: Complete OB ultrasound, less than 14 weeks, transabdominal Date and time of exam: June 28, 2025, 1050 hours,. INDICATIONS: Positive test 1 month ago, vaginal bleeding beginning June 13, 2025 with onset severe right lower abdomen pelvic pain beginning 4 days ago Technique: Obstetrical ultrasound images less than 14 weeks performed via transabdominal imaging Findings: Uterus 8.1 cm endometrial stripe 1.2 cm No intrauterine gestation Moderate free fluid in the cul-de-sac Right ovary 2.7 cm arterial flow, gestational sac and pole in the right fallopian tube, CRL 0.3 cm corresponds to 6 weeks 0 days gestational age, no cardiac motion with adjacent free fluid Left ovary 2.9 cm arterial flow IMPRESSION: No intrauterine gestation Findings most consistent with ruptured right ectopic in the right fallopian tube
== END | disposition home or self-care (01) ==
LOC: CDIM 10:16
PROVIDERS: PCP Family Medicine; Referring Provider Obstetrics & Gynecology; Visit Provider Obstetrics & Gynecology
DX: O26.849 Uterine size-date discrepancy, unspecified trimester (principal); O36.80X0 Pregnancy with inconclusive fetal viability, not applicable or unspecified
CPT/HCPCS: 76801; 76817

== ENCOUNTER 2025-07-08 08:59 | Outpatient (AMB) | payer OTHER, SELFPAY ==
--- NOTE | 2025-07-08 09:10 | AMB.GYNCLNOT ---
Vital Signs 07/08/25 09:15 Weight 62.369 kg Weight Measurement Method Standing Scale BP 121/81 Blood Pressure Source Automatic Cuff Blood Pressure Location Left Upper Arm Position Sitting Respiration 18 Pulse 77 Pulse Source Monitor Temp 97.2 F Temp Source Oral Pulse Oximetry (%) 98 Oxygen Delivery Method Room Air Allergies/Home Meds Allergies & Medications Allergies bee venom protein (honey bee) Allergy (Verified 07/08/25 09:15) Medication Reconciliation docusate sodium 100 mg capsule 100 mg PO QDAY #2 caps 06/29/25 [Rx Confirmed 07/08/25] ibuprofen 600 mg tablet 600 mg PO Q6H PRN fever or pain 10 days #40 tabs 06/29/25 [Rx Confirmed 07/08/25] Intake Visit Data Collection New Patient or Established: Established Patient (seen at [facility] within 3 years) Reason for Visit:: POST OP Seen by Clinical Staff ONLY (RN/MA): No Dot Compliance Coordinator Required: No Do You Feel Safe at Home: Yes Authorities Contacted: N/A PCP or OBGYN visit in last 3 months: Yes Date of Last PCP or OBGYN visit: 06/29/25 Hx Now: Yes Pain Present Currently: No Pain Scale Used: Patino-Stokes/Numerical Pain scale:: 0 Smoking Status Smoking Status: Never smoker Immunizations Flu Vaccine in the Last 12 Months: Yes Flu Vaccine Exclusion Criteria: Already Received 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 Menstrual regularity: regular Flow: normal Monthly: Yes Menopausal: No Currently sexually active: Yes 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 1. Little interest or pleasure in doing things: not at all 2. Feeling down, depressed, or hopeless: not at all Total score: 0 PHQ-9 3. Trouble falling or staying asleep, or sleeping too much: Not at all 4. Feeling tired or having little energy: Not at all 5. Poor appetite or overeating: Not at all 6. Feeling bad about yourself - or that you are a failure or have let yourself or your family down: Not at all 7. Trouble concentrating on things, such as reading the newspaper or watching television: Not at all 8. Moving or speaking so slowly that other people could have noticed? - Or the opposite - being so fidgety or restless that you have been moving around a lot more than usual: not at all 9. Thoughts that you would be better off or of hurting yourself in some way: Not at all Total score: 0 If you checked off any problems, how difficult have these problems made it for you to do your work, take care of things at home, or get along with other people?: not difficult at all Source: Developed by Drs. González Gordon, Claudia Sims, Armando Borjas and colleagues, with an educational mike from [employer]. Depression screen completed yes Social History Living Situation History Marital Status: Lives With: Family Housing: House Tobacco History Smoking Status: Never smoker Second Hand Smoke Exposure: No Alcohol History Alcohol Intake: Never Domestic Abuse History Do You Feel Safe at Home: Yes History of Present Illness HPI Narrative Allie Doss presents for a post-operative follow-up visit after undergoing surgical management for an ectopic . She was initially seen for early but was subsequently diagnosed with an ectopic , for which she underwent right salpingectomy and evacuation of hemoperitoneum on June 28, 2025, which was 10 days prior to today's visit. The patient reports that she is all healed up following her surgery. She expresses interest in trying to conceive again and inquires about timing and safety considerations for future attempts. She asks specifically about the risk of recurrent ectopic . She underwent right salpingectomy and evacuation of hemoperitoneum on June 28, 2025 for ectopic . The patient has been taking vitamins. She has an obstetric history of G1 T0 L0 with recent ectopic in June 2025, treated with right salpingectomy and evacuation of hemoperitoneum on June 28, 2025. ROS: Not documented. Exam General General Appearance: alert, in no apparent distress and healthy appearing Head Head exam: atraumatic Neck Neck exam: Present normal inspection and trachea midline Chest Chest inspection: Present normal inspection and symmetric chest wall rise External exam: Present normal external exam; Absent tenderness Neuro Neurological exam: Present oriented X3 Psych Psychiatric exam: Present normal affect and normal mood Office Procedures [facility] LOC & Office Proc's Nursing/Assessment Patient Status: Established Patient [facility] Nursing Assessment: Medication Reconciliation, Update PMH in EMR and Vital Signs OB Clinic Coordination of Care: Complex Care and Chronic Disease 1-5, Consent,records obtained, informed consent, Education Simp Pt/Fam, Lab and Imaging orders, Results/Orders obtained and Staff clarify orders Established Patient Charge Established Patient Point Assignment: 105 Established Patient Point Charge: EP Level 3 (80-115) Assessment & Plan Diagnosis / Problem List (1) Ruptured ectopic : Status: Acute (2) Encounter for surgical aftercare following surgery on the genitourinary system: Status: Acute (3) Other specified postprocedural states: Status: Acute Plan Post-operative status following right salpingectomy: - 10 days post-operative from right salpingectomy and evacuation of hemoperitoneum performed on June 28, 2025 for ectopic . - Patient reports feeling all healed up with no apparent complications. Plan: - Complete disability/work forms as requested. - Patient cleared for normal activities. - No further follow-up testing required. Future planning: - Patient desires to attempt conception following recovery from ectopic . - Patient now has one remaining fallopian tube after right salpingectomy. - Risk of recurrent ectopic is equivalent to general population risk. - Ovulation expected to resume in approximately 2 months post-procedure. Plan: - No waiting period required before attempting conception. - Expect ovulation to return in August 2025 (approximately 2 months post-procedure). - Begin ovulation testing at home starting in August 2025. - Continue vitamins. - Patient counseled that conception is safe once ovulation resumes. - Patient counseled that risk of recurrent ectopic is same as general population.
[2025-07-08 09:15] VITALS: BP 121/81; PULSE 77; RESP 18; TEMP 36.2; O2SAT 98
== END 2025-07-08 09:23 | disposition home or self-care (01) ==
LOC: HODSOBC 08:59
PROVIDERS: Supervising Provider Obstetrics & Gynecology; Visit Provider Obstetrics & Gynecology
DX: Z48.816 Encounter for surgical aftercare following surgery on the genitourinary system (principal); Z87.59 Personal history of other complications of pregnancy, childbirth and the puerperium; Z90.79 Acquired absence of other genital organ(s); Z91.030 Bee allergy status
CPT/HCPCS: 99213; G0463